=== PATIENT | male | born 1980 | race Caucasian/White ===

== ENCOUNTER 2023-04-22 19:12 | Emergency (ER) | payer BC, OTHER ==
[2023-04-22] MEDS ORDERED: Ibuprofen 600 MG TAB ONE (20:25)
== END 2023-04-22 21:04 | disposition left against medical advice (07) ==
LOC: MADERS 19:12
DX: S67.22XA Crushing injury of left hand, initial encounter (principal); S60.512A Abrasion of left hand, initial encounter; F17.210 Nicotine dependence, cigarettes, uncomplicated; W23.0XXA Caught, crushed, jammed, or pinched between moving objects, initial encounter

== ENCOUNTER 2024-08-29 10:57 | Emergency (ER) | payer BC | END 2024-08-29 12:18 | disposition home or self-care (01) | LOC: MADERS 10:57 | DX: S93.401A Sprain of unspecified ligament of right ankle, initial encounter (principal); F17.210 Nicotine dependence, cigarettes, uncomplicated; X50.1XXA Overexertion from prolonged static or awkward postures, initial encounter | CPT/HCPCS: 99283 ==